=== PATIENT | male | born 1990 | race Hispanic/Latino ===

== ENCOUNTER 2021-03-25 16:56 | Emergency (ER) | payer MEDICARE ==
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
== END 2021-03-25 22:39 | disposition home or self-care (01) ==
LOC: ED 16:56
DX: R46.89 Other symptoms and signs involving appearance and behavior (principal); F84.0 Autistic disorder
CPT/HCPCS: 99283

== ENCOUNTER 2021-07-09 14:46 | Emergency (ER) | payer MEDICARE ==
[2021-07-09 15:12] VITALS: BP 131/78
[2021-07-09] MEDS ORDERED: SODIUM CHLORIDE 0.9% 1000 ML 1,000 ML IV ONE (15:15)
[2021-07-09] MEDS ORDERED: FAMOTIDINE 20 MG/2 ML INJ IV ONE (15:15)
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
== END 2021-07-09 16:13 | disposition home or self-care (01) ==
LOC: ED 14:46
DX: S09.90XA Unspecified injury of head, initial encounter (principal); Y04.8XXA Assault by other bodily force, initial encounter; Y93.89 Activity, other specified; Y92.89 Other specified places as the place of occurrence of the external cause; Y99.8 Other external cause status
CPT/HCPCS: 99283

== ENCOUNTER 2021-07-26 18:37 | Emergency (ER) | payer MEDICARE ==
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
[2021-07-26 20:10] LABS: Hematocrit 39.1 % (35.5-45.6); Mean Corpuscular HGB Conc 33 % (32-34); Mean Corpuscular Volume 97 fl (84-94); Platelet Count 122 K/mm3 (140-440); Red Blood Count 4.01 M/mm3 (3.65-5.03)
[2021-07-26 20:26] LABS: BUN/Creatinine Ratio 14; Blood Urea Nitrogen 11 mg/dL (9-20); Calcium 9.3 mg/dL (8.4-10.2); Hemolysis Index 13
[2021-07-26] MEDS ORDERED: risperiDONE 1 MG TAB PO SCH (22:00)
[2021-07-26] MEDS ORDERED: NON-FORMULARY EACH (Clonazepam [Klonopin] 1 MG Tablet) PO PRN (23:14)
[2021-07-26] MEDS ORDERED: clonazePAM 0.5 MG TAB PO PRN (23:45)
[2021-07-27 02:07] VITALS: BP 112/70
== END 2021-07-27 10:14 | disposition home or self-care (01) ==
LOC: ED 18:37
DX: F84.0 Autistic disorder (principal); Z79.899 Other long term (current) drug therapy
CPT/HCPCS: 36415; 80048; 80164; 84443; 85027; 99283; J3490; 80320; G0480